=== PATIENT | female | born 1955 | race Caucasian/White ===

== ENCOUNTER 2021-05-11 12:16 | Inpatient (IN) | payer OTHER, SELFPAY ==
[2021-05-11] VITALS (13 sets, daily range): BP systolic 139–206; BP diastolic 74–129; PULSE 76–118; RESP 8–22; TEMP 36.1–37.7; O2SAT 92–99; BMI 41.1
--- NOTE | 2021-05-11 12:27 | US_ITS ---
STUDY: ABDOMINAL ULTRASOUND - RIGHT UPPER QUADRANT REASON FOR VISIT: Female, 65 years old. Pain epigastric pain nausea vomiting for one day TECHNIQUE: Ultrasound evaluation of the right upper quadrant was performed with real-time and static pierre-scale imaging. TECHNICAL QUALITY: Adequate. COMPARISON: None. FINDINGS: Liver: The liver measures 19.7 cm. There is increased echogenicity of the liver. The bile ducts are within normal limits. There is hepatic color flow. The direction of portal flow is hepatopetal. There is no demonstrated mass lesion. Gallbladder: Normal distended gallbladder. The gallbladder wall measures 5.5 mm. There is positive sonographic Petit stone. There is pericholecystic fluid and multiple small gallstones. Common Bile Duct (C.B.D.): The common bile duct measures 6.5 mm. Pancreas: Not visualized due to patient''s condition. Right Kidney: Normal size of the right kidney. The right kidney measures 11.2 x 5.4 x 5.9 cm. Normal renal cortex. The right cortex measures 1.6 cm. There is no demonstrated renal mass or cyst. There is no right hydronephrosis. US/Gallbladder IMPRESSION: Cholecystolithiasis and cholecystitis. Hepatomegaly and steatosis. Electronically Signed: Whitley Frazier MD at 15:03 EST Tel , Service support ,
--- NOTE | 2021-05-11 12:28 | EDS_ITS ---
HPI HPI - GI History of Present Illness Chief Complaint: Abd Pain Detail of Chief Complaint: Right upper quadrant/epigastric pain Informant: patient Abdominal Pain/Flank Pain Onset: Today and Hours Context: Sudden Onset Timing: Continuous and Waxes and wanes Quality: Cramping Location: Epigastric and RUQ Current Severity: Severe Maximum Severity: Severe Worsened by: Nothing Relieved by: Nothing Nausea/Vomiting/Emesis GI Symptom: Positive for Nausea; Negative for Vomiting Diarrhea/Melena/Hematochezia GI Symptom: Negative for Diarrhea, Melena and Hematochezia Associated Symptoms Associated Symptoms: Negative for Dysuria, Frequency and Hematuria Narrative Narrative: Patient is an elderly woman with history of depression who presents with abrupt onset of right upper quadrant/epigastric pain that started at 0200. She had pizza with her last evening. She denies history of liver or biliary disease. There is no family history of biliary disease. She denies cardiac or respiratory symptoms. She denies urologic symptoms. There is no history of renal ureterolithiasis. She has no other complaints. Prior similar symptoms: No Recent Illness/Hospitalization: No PFSH PFSH Medical History no medical history Home Medications NK 05/11/21 [History Last Taken Unknown] Allergy/AdvReac Type Severity Reaction Status Date / Time No Known Allergies Allergy Verified 05/11/21 12:17 Surgical History (Updated 05/11/21 @ 15:[address] Nataliia Dinero MD) History of Social History (Updated 05/11/21 @ 12:[address] Stewart Do MD) household members: spouse Smoking Status: Never smoker substance use type: does not use ROS ROS ED Constitutional Constitutional ED: Denies chills, fever(s), subjective, sweats or weight loss ENT ENT ED: Denies ear pain, rhinorrhea or sore throat Cardiovascular Cardiovascular: Denies chest pain, orthopnea, palpitations, paroxysmal nocturnal dyspnea or racing heartbeat Respiratory/Chest Respiratory/Chest: Denies cough, dyspnea, dyspnea on exertion, orthopnea, paroxysmal nocturnal dyspnea or sputum Gastrointestinal Gastrointestinal: Reports abdominal pain and nausea; Denies constipation, diarrhea or vomiting Genitourinary Genitourinary ED: Denies dysuria, hematuria or urinary frequency Musculoskeletal Musculoskeletal: Denies arthralgias, myalgias or neck pain Integumentary Denies Abrasions or rash Neurologic Neurologic: Denies headache(s) or weakness Psychiatric Psychiatric: Reports depression Endocrine Endocrinology: Denies polydipsia, polyphagia or polyuria EXAM Physical Exam Const Vital Signs: 05/11/21 12:17 05/11/21 14:43 05/11/21 14:50 Temperature 97.0 F L Temperature Source Temporal Pulse Rate 76 87 91 Respiratory Rate 8 L 22 H 14 Blood Pressure 203/90 H 206/97 H 206/97 H Blood Pressure Mean 127 133 133 Blood Pressure Source Monitor Blood Pressure Position Semi-Fowlers Blood Pressure Location Left Arm Pulse Ox 99 98 98 Oxygen Delivery Method Room Air Room Air Room Air Positive well nourished, well developed and obese General Appearance ED: well developed and other Patient in obvious discomfort. She is unable to keep still. She points to the epigastric right upper quadrant. ; Negative for NAD or pallor Nutritional Appearance: obese HEENT Reports dry mucous membranes normocephalic and atraumatic Mouth ED: Yes dry mucous membranes Mouth: dry mucous membranes Eyes PERRL and EOMs intact bilaterally General Eye ED: Negative for pale conjunctiva or scleral icterus Neck no lymphadenopathy, supple and no JVD Resp normal respiratory effort and clear to auscultation bilaterally Cardio regular rate, regular rhythm, S1 normal heart sound, S2 normal heart sound and no murmurs GI no masses; Negative for non-tender or non-distended Auscultation: Negative for normoactive bowel sounds Palpation: soft, tender RUQ and Petit's sign and guarding RUQ Back/Spine no CVA tenderness Cervical Spine: Negative for cervical spine tenderness Thoracic Spine / Upper Back: Negative for thoracic spinal tenderness Lumbar Spine / Lower Back: Negative for lumbar spinal tenderness Extremity full ROM General Extremety ED: Negative for edema or tenderness General Extremity: Negative for edema Neuro CN's II-XII intact bilaterally, moves all extremities and no sensory deficits noted Sensorium / Orientation: alert, oriented to person and oriented to place Motor Exam: strength 5/5 throughout Psych mental status grossly normal and thought process normal Skin no wounds General Skin Exam: Negative for jaundice or pallor Lesions: no lesions Rashes: no rashes MDM MDM MDM Narrative Medical decision making narrative: Dr. Valle raise concern regarding blood pressure. Second dose of Dilaudid was ordered. I was informed at 06/25/[address] Arciniega was still concerned the blood pressure is elevated. I was informed that the second dose of Dilaudid had not been administered. Suspect this is due to pain as well as an treated undiagnosed hypertension. If there is no improvement after second dose of Dilaudid will treat with antihypertensive medication. With abrupt onset of pain positive Petit sign concern patient has acute cholecystitis or a stone stuck in the neck of the bladder. CBC was obtained assess white count. Electrolyte panel was obtained to assess renal function, anion gap and electrolytes. Hepatic and lipase was ordered as well. Ultrasound was ordered. She was medicated with Zofran for her nausea and hydromorphone for her pain. Patient's blood pressure remains elevated. 1.25 mg of enalapril was ordered, IV push. Patient was taken to the operating room Lab Data Attestation: I reviewed the patient's lab results. Labs: Laboratory Results - last 24 hr 05/11/21 05/11/21 12:35 12:35 WBC 16.9 H RBC 4.37 Hgb 14.5 Hct 40.3 MCV 92.2 MCH 33.2 H MCHC 36.0 RDW Std Deviation 39.4 RDW Coeff of Sarmad 11.5 L Plt Count 338 MPV 10.2 Immature Gran % (Auto) 0.900 Neut % (Auto) 89.8 H Lymph % (Auto) 6.4 L Bowie % (Auto) 2.7 Eos % (Auto) 0.0 Baso % (Auto) 0.2 Absolute Neuts (auto) 15.2 H Absolute Lymphs (auto) 1.08 Nucleated RBC % 0 Sodium 138 Potassium 3.6 Chloride 104 Carbon Dioxide 28.0 Anion Gap 6 BUN 10 Creatinine 0.73 Estim Creat Clear Calc 62.39 Est GFR (MDRD) Af Amer 103 Est GFR (MDRD) Non-Af 85 BUN/Creatinine Ratio 13.7 Glucose 149 H Calcium 8.9 Total Bilirubin 0.60 AST 18 ALT 28 Alkaline Phosphatase 90 Total Protein 8.0 Albumin 3.5 Globulin 4.5 H Albumin/Globulin Ratio 0.8 L Lipase 49 L Radiography Diagnostic Testing: Clinical Impression(s) from Imaging Studies Gallbladder Ultrasound 05/11/21 12:27 IMPRESSION: Cholecystolithiasis and cholecystitis. Hepatomegaly and steatosis. Electronically Signed: Whitley Frazier MD at 15:03 EST Tel , Service support , The ultrasound has not been read formally by the radiologist. I reviewed ultrasound and agree with fill technician that there are multiple gallstones evidence of chronic and acute cholecystitis. The common bile duct is dilated 6 to 7 mm. She states she had difficulty doing the exam properly because of the amount of discomfort the patient was experiencing. Patient was reevaluated at 1419. Additional dose of Dilaudid was ordered. Because of the white count and evidence of acute cholecystitis 4.5 g of Zosyn was ordered and the surgeon on- call was paged. EKG Initial EKG: Attestation: I personally reviewed and interpreted this EKG as follows: Interpretation: Sinus Rhythm (Sinus rhythm with a ventricular rate 80. WA intervals 170 ms. QRS durations 92 ms. QT duration is 400 ms. [place] is normal. Computer is reading nonspecific changes which is patient's movement because of the severe pain she is experiencing.) Critical Care Time Critical Care Time: Yes Critical care time (excluding procedures): 30-74 minutes (31 minutes), Including time spent: (History, physical examination, documentation, reassessment, interpretation of laboratory results, discussion with consultants, management of pain and elevated blood pressure), Discussing w/Patient &/or Family/Enterprise Systems Manager, Discussing w/Consultants and Arranging Admission or Transfer Discharge Plan Dx/Rx/DC Orders Clinical Impression: Calculus of gallbladder with acute on chronic cholecystitis, Dilation of common bile duct, Asymptomatic hypertensive urgency Disposition Disposition: Acute Care [facility]
[2021-05-11] MEDS: HYDROmorphone 1 MG/ML Syringe IV ×2 (12:35→14:40)
[2021-05-11] MEDS: Ondansetron 4 MG/2 ML Vial IV (12:35)
[2021-05-11] MEDS: 0.9% Normal Saline 1,000 ML 125 ML IV ×3 (12:44→21:34)
[2021-05-11 12:50] LABS: Absolute Lymphocyte Count 1.08 X10^3/uL (0.83-4.51); Absolute Neutrophil Count 15.2 X10^3/uL (2.0-7.7); Basophil# 0.03 X10^3/uL; Basophil% 0.2 % (0-1); Hematocrit 40.3 % (37-47); Hemoglobin 14.5 g/dL (12.0-15.0); Lymphocyte # 1.08 X10^3/ul (0.83-4.51); Lymphocyte % 6.4 % (19-41); Mean Corpuscular Hgb 33.2 pg (27.0-32.0); Mean Corpuscular Volume 92.2 fL (81-99); Mean Platelet Vol. 10.2 fl (6.2-12.0); Monocyte# 0.46 X10^3/uL; Monocyte% 2.7 % (0-10); NRBC Flagged by Analyzer 0 % (0-5); Neutrophil # 15.17 X10^3/uL (2.7-7.7); Neutrophil % 89.8 % (47-70); Platelet Count 338 K/mm3 (150-450); RBC Distribution Width CV 11.5 % (11.6-14.6); RBC Distribution Width SD 39.4 fl (35.1-43.9); Red Blood Count 4.37 M/mm3 (4.2-5.4); White Blood Count 16.9 K/mm3 (4.4-11.0)
[2021-05-11 13:00] LABS: ALB/GLOB Ratio 0.8 RATIO (0.9-2.4); AST(SGOT) 18 U/L (15-37); Alanine Aminotransfer ALT/SGPT 28 U/L (13-56); Albumin, Serum 3.5 g/dL (3.2-5.0); Alkaline Phosphatase 90 U/L (45-117); Anion Gap 6 (5-15); BUN 10 mg/dL (7-18); BUN/Creat Ratio 13.7 RATIO (10-20); Calcium,Total 8.9 mg/dL (8.5-10.1); Chloride 104 mmol/L (98-107); Creatinine, Serum 0.73 mg/dL (0.55-1.02); EST Glomerular Filtration Rate 85 mL/min (>60); Est Glom Filt Rate - Afr Amer 103 mL/min (>60); Estimated Creatinine Clearance 62.39 ml/min; Globulin 4.5 g/dL (2.2-4.2); Glucose 149 mg/dL (74-106); Lipase 49 U/L (73-393); Potassium 3.6 mmol/L (3.5-5.1); Sodium Level 138 mmol/L (136-145)
--- NOTE | 2021-05-11 14:35 | NURSING ---
OR [facility] CHOLELITHIASIS
--- NOTE | 2021-05-11 14:57 | NURSING ---
DR MALIK IN ROOM
--- NOTE | 2021-05-11 14:58 | HP.PCM.SX_ITS ---
HPI - General HPI Narrative YULIA MILLER, is a 65 F who presents to the ER due to right upper quadrant/epigastric pain which started at 2 AM this morning. Patient last ate or drank at 8 PM had some pizza for dinner. Patient denies ever having previous episodes. She states she only has reflux may be once or twice a month. Patient's white blood count is 16.9 she was given Zosyn IV for acute cholecystitis in the ER. Official read of ultrasound not complete does appear to have some gallbladder wall thickening greater than 3 mm, gallstones and small amount of pericholecystic fluid common bile duct measured by the tech about 6 mm . PFSH Medical History no medical history Home Medications NK 05/11/21 [History Last Taken Unknown] Allergy/AdvReac Type Severity Reaction Status Date / Time No Known Allergies Allergy Verified 05/11/21 12:17 Surgical History (Updated 05/11/21 @ 15:[address] Nataliia Dinero MD) History of Social History (Updated 05/11/21 @ 12:[address] Stewart Do MD) household members: spouse Smoking Status: Never smoker substance use type: does not use Vital Signs Vital Signs Vital Signs: 05/11/21 12:17 05/11/21 14:43 05/11/21 14:50 Temperature 97.0 F L Temperature Source Temporal Pulse Rate 76 87 91 Respiratory Rate 8 L 22 H 14 Blood Pressure 203/90 H 206/97 H 206/97 H Blood Pressure Mean 127 133 133 Blood Pressure Source Monitor Blood Pressure Position Semi-Fowlers Blood Pressure Location Left Arm Pulse Ox 99 98 98 Oxygen Delivery Method Room Air Room Air Room Air Weight Weight: 225 lb Body Mass Index (BMI) 41.1 Physical Exam Const alert, oriented x3 and no apparent distress HEENT normocephalic and head/scalp atraumatic Resp normal respiratory effort Cardio regular rate GI soft to palpation; Negative for non-distended Palpation: tender epigastric and RUQ; Negative for guarding or rebound tenderness present Extremity no clubbing, cyanosis or edema Neuro CN's II-XII intact bilaterally Psych mental status grossly normal Results Lab / Micro Data Result Diagrams: 05/11/21 12:35 05/11/21 12:35 Labs: Laboratory Results - last 24 hr 05/11/21 12:35: WBC 16.9 H, RBC 4.37, Hgb 14.5, Hct 40.3, MCV 92.2, MCH 33.2 H, MCHC 36.0, RDW Std Deviation 39.4, RDW Coeff of Sarmad 11.5 L, Plt Count 338, MPV 10.2, Immature Gran % (Auto) 0.900, Neut % (Auto) 89.8 H, Lymph % (Auto) 6.4 L, [place] % (Auto) 2.7, Eos % (Auto) 0.0, Baso % (Auto) 0.2, Absolute Neuts (auto) 15.2 H, Absolute Lymphs (auto) 1.08, Nucleated RBC % 0 05/11/21 12:35: Sodium 138, Potassium 3.6, Chloride 104, Carbon Dioxide 28.0, Anion Gap 6, BUN 10, Creatinine 0.73, Estim Creat Clear Calc 62.39, Est GFR (MDRD) Af Amer 103, Est GFR (MDRD) Non-Af 85, BUN/Creatinine Ratio 13.7, Glucose 149 H, Calcium 8.9, Total Bilirubin 0.60, AST 18, ALT 28, Alkaline Phosphatase 90, Total Protein 8.0, Albumin 3.5, Globulin 4.5 H, Albumin/Globulin Ratio 0.8 L , Lipase 49 L Assessment & Plan Assessment/Plan (1) Calculus of gallbladder with acute on chronic cholecystitis: PLAN: Reviewed the anatomy with the patient and discussed the procedure: laparoscopic cholecystectomy with possible cholangiograms, possible open. Review risks including but not limited to bleeding, infection, hernia, bile leak, retained gallstones requiring another procedure ERCP- Endoscopic Retrograde Cholangiopancreatography, injury to another organ (bile ducts, common bile duct, small bowel, etc.) may require transfer to a tertiary care facility and conversi on to an open procedure. All questions were answered. Nataliia Dinero M.D. Pager: [phone] [facility] [address] [place] [address], [address] [place] [address] Office: [phone] Procedure Criteria Type of Procedure Procedure Type: Elective Elective Risks - COVID COVID Risk Discussion: The surgeon/proceduralist and patient have discussed in detail the risk of exposure to and/or potential harm posed by the COVID-19 virus with having a surgery/procedure at this time versus the risk of delaying the surgery/procedure. It is not possible to know either the risk of delaying the surgery or procedure or chance of getting an infection with perfect accuracy, but a joint decision was made between the patient and the surgeon/proceduralist to proceed at this time with the scheduled surgery/procedure as indicated on the consent form.
--- NOTE | 2021-05-11 15:10 | GALL_PTH ---
PATIENT: YULIA MILLER LOC: [id number] U#:[id number] AGE/SX: 65/F ROOM: [facility] RE05/11/[address]: Dr. Nataliia Dinero MD : [id number] BED: 1 DIS: 05/13/2021 SPEC #: [id number] RECD: 05/12/21 07:33 STATUS: CELINA ZHANG #: [id number] SARAY: 05/11/21 15:[address]: Nataliia Dinero DEPT: SURGICAL PATHOLOGY RECD BY: Isabel Stuart ENTERED: 05/12/21 09:16 SP TYPE: GLORIA CHAIDEZ DR: Dr. Jasmin Ortiz MD Tissues: Gallbladder, NOS Procedures: Surgery Specimen Level III HEADER OPERATION: Laparoscopic cholecystectomy with IOC PRE-OP DIAGNOSIS: Calculus of gallbladder with acute on chronic cholecystitis TISSUE SUBMITTED: Gallbladder MICROSCOPIC DIAGNOSIS Gallbladder, cholecystectomy: Acute and chronic ulcerated cholecystitis and cholelithiasis. Pericystic lymph node with reactive changes. SJ:fany 05/13/2021 MICROSCOPIC DESCRIPTION Slides are reviewed. GROSS DESCRIPTION Received is one container labeled with the patient's name and designated gallbladder. The specimen consists of a previously opened gallbladder measuring 12 x 6 x 6 cm. The external surface is smooth and glistening. Focally, it is granular, hemorrhagic and contains cautery artifact. The lumen of the gallbladder contains yellow-green mucoid bile and multiple yellow, multifaceted calculi ranging in size from 0.1 to 1 cm in greatest dimension. The mucosa is bile-stained and without any mass lesions. The gallbladder wall averages 0.3 cm in thickness and is free of mass lesions. Sections reveal a pericystic nodule measuring 1.7 cm in greatest dimension. Physics Faculty Member sections of the gallbladder, cystic duct and pericystic nodule are submitted in one cassette. / AM:fany 05/12/21 TC:2 CPT: 32826
--- NOTE | 2021-05-11 15:19 | EKG12_ITS ---
Test Reason : ABD PAIN Blood Pressure : / mmHG Vent. Rate : 080 BPM Atrial Rate : 080 BPM P-R Int : 170 ms QRS Dur : 092 ms QT Int : 400 ms P-R-T Axes : 005 000 -10 degrees QTc Int : 461 ms Normal sinus rhythm Nonspecific T wave abnormality Abnormal ECG Confirmed by NIKO SUMNER, UTE ([id number]), editor farm journal RADHA LUDWIG ([id number]) on 05/12/2021 1:55:54 PM Referred By: TIMMY Confirmed By:UTE POPE MD
--- NOTE | 2021-05-11 15:19 | NURSING ---
NO OLD EKGS
--- NOTE | 2021-05-11 16:00 | RAD_ITS ---
STUDY: INTRAOPERATIVE CHOLANGIOGRAM REASON FOR EXAM: Female, 65 years old. Cholecystectomy RADIATION DOSAGE (If Supplied By Facility): CTDIvol = ( ) mGy, DLP = ( ) mGycm. Individualized dose optimization techniques were used for this CT.? FLUOROSCOPY TIME (if supplied): ( 1 minute ) minutes/seconds TECHNIQUE: Procedure performed by Dr. Dinero COMPARISON: None. FINDINGS: After removal of the gallbladder, the cystic duct remnant was cannulized, and contrast injected into the biliary tree. There is normal distention of the intra and extrahepatic ducts. No filling defect to suspect retained stone or gas. There is no extravasation of contrast, and free flow of contrast is noted into the duodenum. RAD/Cholangiogram/ O R,Initial IMPRESSION: Normal intraoperative cholangiogram Electronically Signed: Sanjiv Osorio MD at 20:05 EST , Service support ,
--- NOTE | 2021-05-11 17:43 | PCM.OPRPT ---
Report of Operation Date of Procedure: 05/11/21 Pre-Operative Diagnosis: Acute cholecystitis Post-Operative Diagnosis: Acute cholecystitis, choledocholithiasis Surgery/Procedure Performed:: Laparoscopic cholecystectomy with cholangiograms Description of Surgical Findings:: Cholangiograms show choledocholithiasis Surgeon: Nataliia Dinero Type of Anesthesia: General/Supplemental Anesthesiologist: Karely Almonte Special Medications: Zosyn 4.5 g IV x1 Specimen's removed: Gallbladder and stones Estimated Blood Loss (mL): 30 cc Fluids Replaced: Per anesthesia Description of Procedure: Indications this is a 65 year-old female who developed abdominal pain/nausea/vomiting and on workup was found to have cholelithiasis, acute cholecystitis with a normal common bile duct. Laparoscopic cholecystectomy was elected. Description procedure: The patient was placed on operating table in supine position. General Anesthesia was induced. A timeout was completed verifying correct patient, procedure, site, position and special equipment prior to beginning procedure. The abdomen was prepped and draped in usual sterile fashion. An incision was made in the natural skin line above the umbilicus. The fascia was elevated and incised. The peritoneum was elevated and incised. Entry into the peritoneum was confirmed visually and no bowel was noted in the vicinity of the incision. [place] trocar was placed. The abdomen was insufflated with carbon dioxide to a pressure of 12-15 mmHg. Patient tolerated insufflation well. The laparoscope was then inserted and abdomen inspected. No injuries from initial trocar placement were noted. Additional trochars were then inserted in the following locations 5 mm trocar in the epigastrium and 2 more 5 mm trochars along the right costal margin. The abdomen was inspected no abnormalities were found. The table is placed in reverse Trendelenburg position with the right side up. The adhesions between the gallbladder and omentum were lysed sharply. The gallbladder was inflamed and tense and aspiration needle was used to help decompress. The dome of the gallbladder was grasped with atraumatic grasper passed through the lateral port and retracted over the dome of the liver. Infundibulum was then grasped with atraumatic grasper through the midclavicular port and retracted to the right lower quadrant. This maneuver exposed Calot's triangle. The peritoneum overlying the gallbladder infundibulum was then incised and cystic duct and artery identified and circumferentially dissected. Jones catheter was used for cholangiograms. The cholangiogram showed good filling of the common bile duct with filling defect in the distal aspect of the common bile duct some contrast did go through to the duodenum, good filling of the right and left bile ducts as well. The cystic duct and artery were then doubly clipped and divided close to the gallbladder. The gallbladder then dissected from its peritoneal attachments by electrocautery. Hemostasis was checked and the gallbladder and contained stones were removed using the endoscopic retrieval bag through the umbilical port which had to be enlarged due to the size of the gallbladder. The gallbladder is passed off table as specimen. The gallbladder fossa was copiously irrigated with saline and hemostasis obtained. There is no evidence of bleeding from the gallbladder fossa or cystic artery leakage of bile from the cystic duct stump. Secondary trochars removed under direct vision. No bleeding was noted the trocar sites. The laparoscope was withdrawn and umbilical trocar removed. The abdomen was allowed to collapse. The fascia of the 12 mm trocar was closed with 2 [id number] 0 Vicryl suture. The skin was closed with sutures of 4-0 Monocryl and Steri-Strips. The orogastric tube was removed and the patient was extubated. The patient tolerated procedure well and was taken to the postanesthesia care unit in stable condition. Complications none
[2021-05-11] MEDS: Bupivacaine Mpf 0.5% 30 ML VIAL (17:44)
--- NOTE | 2021-05-11 19:00 | PCS.PANDOC ---
PANDEMIC DOCUMENTATION INITIATED: Date: 02/03/2021 Time: 190 Emergency documentation initiated 05/11/21 @ 1900
[2021-05-12] VITALS (13 sets, daily range): BP systolic 122–164; BP diastolic 59–97; PULSE 61–94; RESP 16–18; TEMP 36.7–37.3; O2SAT 92–98
[2021-05-12 06:36] LABS: Absolute Lymphocyte Count 0.99 X10^3/uL (0.83-4.51); Absolute Neutrophil Count 13.4 X10^3/uL (2.0-7.7); Basophil# 0.02 X10^3/uL; Basophil% 0.1 % (0-1); Hematocrit 38.6 % (37-47); Hemoglobin 13.3 g/dL (12.0-15.0); Lymphocyte # 0.99 X10^3/ul (0.83-4.51); Lymphocyte % 6.7 % (19-41); Mean Corp Hgb Conc 34.5 g/dL (32-36); Mean Platelet Vol. 10.5 fl (6.2-12.0); Monocyte# 0.26 X10^3/uL; Monocyte% 1.8 % (0-10); NRBC Flagged by Analyzer 0 % (0-5); Neutrophil # 13.35 X10^3/uL (2.7-7.7); Neutrophil % 90.5 % (47-70); Platelet Count 344 K/mm3 (150-450); RBC Distribution Width CV 11.7 % (11.6-14.6); RBC Distribution Width SD 39.4 fl (35.1-43.9); Red Blood Count 4.15 M/mm3 (4.2-5.4); White Blood Count 14.8 K/mm3 (4.4-11.0)
[2021-05-12 06:58] LABS: AST(SGOT) 149 U/L (15-37); Alanine Aminotransfer ALT/SGPT 199 U/L (13-56); Albumin, Serum 2.7 g/dL (3.2-5.0); Alkaline Phosphatase 128 U/L (45-117); Anion Gap 7 (5-15); BUN 10 mg/dL (7-18); BUN/Creat Ratio 14.7 RATIO (10-20); Bilirubin, Direct 0.23 mg/dL (0.00-0.30); Calcium,Total 8.2 mg/dL (8.5-10.1); Chloride 107 mmol/L (98-107); Creatinine, Serum 0.68 mg/dL (0.55-1.02); EST Glomerular Filtration Rate 92 mL/min (>60); Est Glom Filt Rate - Afr Amer 112 mL/min (>60); Estimated Creatinine Clearance 66.97 ml/min; Globulin 4.1 g/dL (2.2-4.2); Glucose 137 mg/dL (74-106); Potassium 3.6 mmol/L (3.5-5.1); Protein, Total 6.8 g/dL (6.4-8.2); Sodium Level 138 mmol/L (136-145)
--- NOTE | 2021-05-12 07:55 | PN.SURG_ITS ---
Subjective Subjective Plan for an ERCP today. Asking the radiologist to review the images as initially its been read as normal but on my read there are filling defects in the distal duct. Objective Data Objective Data Vital Signs: Vital Signs Temp Pulse Resp BP Pulse Ox 98.7 F 86 18 164/69 H 93 05/12/21 04:13 05/12/21 04:13 05/12/21 04:13 05/12/21 04:13 05/12/21 04:13 Oxygen Delivery Method Room Air Weight: 225 lb Body Mass Index (BMI) 41.1 Intake & Output: Intake and Output for Last 24 Hours 05/10/21 05/11/21 05/12/21 23:59 23:59 23:59 Intake Total 1402.08 / 1902.08 550 / 550 Output Total 750 / 750 Balance 1402.08 / 1602.08 -200 / -200 Lab / Micro Data Result Diagrams: 05/12/21 05:15 05/12/21 05:15 Labs: Laboratory Results - last 24 hr 05/11/21 12:35: WBC 16.9 H, RBC 4.37, Hgb 14.5, Hct 40.3, MCV 92.2, MCH 33.2 H, MCHC 36.0, RDW Std Deviation 39.4, RDW Coeff of Sarmad 11.5 L, Plt Count 338, MPV 10.2, Immature Gran % (Auto) 0.900, Neut % (Auto) 89.8 H, Lymph % (Auto) 6.4 L, [place] % (Auto) 2.7, Eos % (Auto) 0.0, Baso % (Auto) 0.2, Absolute Neuts (auto) 15.2 H, Absolute Lymphs (auto) 1.08, Nucleated RBC % 0 05/11/21 12:35: Sodium 138, Potassium 3.6, Chloride 104, Carbon Dioxide 28.0, Anion Gap 6, BUN 10, Creatinine 0.73, Estim Creat Clear Calc 62.39, Est GFR (MDRD) Af Amer 103, Est GFR (MDRD) Non-Af 85, BUN/Creatinine Ratio 13.7, Glucose 149 H, Calcium 8.9, Total Bilirubin 0.60, AST 18, ALT 28, Alkaline Phosphatase 90, Total Protein 8.0, Albumin 3.5, Globulin 4.5 H, Albumin/Globulin Ratio 0.8 L , Lipase 49 L 05/12/21 05:15: WBC 14.8 H, RBC 4.15 L, Hgb 13.3, Hct 38.6, MCV 93.0, MCH 32.0, MCHC 34.5, RDW Std Deviation 39.4, RDW Coeff of Sarmad 11.7, Plt Count 344, MPV 10.5, Immature Gran % (Auto) 0.900, Neut % (Auto) 90.5 H, Lymph % (Auto) 6.7 L, [place] % (Auto) 1.8, Eos % (Auto) 0.0, Baso % (Auto) 0.1, Absolute Neuts (auto) 13.4 H, Absolute Lymphs (auto) 0.99, Nucleated RBC % 0 05/12/21 05:15: Sodium 138, Potassium 3.6, Chloride 107, Carbon Dioxide 24.0, Anion Gap 7, BUN 10, Creatinine 0.68, Estim Creat Clear Calc 66.97, Est GFR (MDRD) Af Amer 112, Est GFR (MDRD) Non-Af 92, BUN/Creatinine Ratio 14.7, Glucose 137 H, Calcium 8.2 L, Total Bilirubin 1.00, Direct Bilirubin 0.23, AST 149 H, ALT 199 H, Alkaline Phosphatase 128 H, Total Protein 6.8, Albumin 2.7 L, Globulin 4.1 Micro: Microbiology 05/11/21 14:45 Nasal Secretion SARS-CoV-2 Antigen (Rapid) - Final Radiography Diagnostic Testing: Radiology Impression Gallbladder Ultrasound 05/11/21 12:27 IMPRESSION: Cholecystolithiasis and cholecystitis. Hepatomegaly and steatosis. Electronically Signed: Whitley Frazier MD at 15:03 EST Tel , Service support , Cholangiogram 05/11/21 16:00 IMPRESSION: Normal intraoperative cholangiogram Electronically Signed: Sanjiv Osorio MD at 20:05 EST , Service support , Physical Exam Resp normal respiratory effort Cardio regular rate GI GI Narrative: Abdomen: Soft, nondistended, tender near incision's dressed clean dry and intact, no peritoneal signs Assessment & Plan Assessment/Plan (1) S/P laparoscopic cholecystectomy: (2) Choledocholithiasis: (3) HTN (hypertension): PLAN: Patient will go for an ERCP today. Continue to monitor any blood pressure patient is currently not on any blood pressure meds at home however came into the hospital she was 200 over 90s, continue as needed hydralazine Nataliia Dinero M.D. Pager: [phone] [facility] [address] [place] [address], [address] [place] [address] Office: [phone]
--- NOTE | 2021-05-12 08:04 | PCM.PN.SRG ---
Subjective Subjective Patient is not reporting any pain this morning. Objective Data Objective Data Vital Signs: Vital Signs Temp Pulse Resp BP Pulse Ox 98.7 F 86 18 164/69 H 93 05/12/21 04:13 05/12/21 04:13 05/12/21 04:13 05/12/21 04:13 05/12/21 04:13 Oxygen Delivery Method Room Air Weight: 225 lb Body Mass Index (BMI) 41.1 Intake & Output: Intake and Output for Last 24 Hours 05/10/21 05/11/21 05/12/21 23:59 23:59 23:59 Intake Total 1402.08 / 1902.08 550 / 550 Output Total 750 / 750 Balance 1402.08 / 1602.08 -200 / -200 Lab / Micro Data Result Diagrams: 05/12/21 05:15 05/12/21 05:15 Labs: Laboratory Results - last 24 hr 05/11/21 12:35: WBC 16.9 H, RBC 4.37, Hgb 14.5, Hct 40.3, MCV 92.2, MCH 33.2 H, MCHC 36.0, RDW Std Deviation 39.4, RDW Coeff of Sarmad 11.5 L, Plt Count 338, MPV 10.2, Immature Gran % (Auto) 0.900, Neut % (Auto) 89.8 H, Lymph % (Auto) 6.4 L, [place] % (Auto) 2.7, Eos % (Auto) 0.0, Baso % (Auto) 0.2, Absolute Neuts (auto) 15.2 H, Absolute Lymphs (auto) 1.08, Nucleated RBC % 0 05/11/21 12:35: Sodium 138, Potassium 3.6, Chloride 104, Carbon Dioxide 28.0, Anion Gap 6, BUN 10, Creatinine 0.73, Estim Creat Clear Calc 62.39, Est GFR (MDRD) Af Amer 103, Est GFR (MDRD) Non-Af 85, BUN/Creatinine Ratio 13.7, Glucose 149 H, Calcium 8.9, Total Bilirubin 0.60, AST 18, ALT 28, Alkaline Phosphatase 90, Total Protein 8.0, Albumin 3.5, Globulin 4.5 H, Albumin/Globulin Ratio 0.8 L, Lipase 49 L 05/12/21 05:15: WBC 14.8 H, RBC 4.15 L, Hgb 13.3, Hct 38.6, MCV 93.0, MCH 32.0, MCHC 34.5, RDW Std Deviation 39.4, RDW Coeff of Sarmad 11.7, Plt Count 344, MPV 10.5, Immature Gran % (Auto) 0.900, Neut % (Auto) 90.5 H, Lymph % (Auto) 6.7 L, [place] % (Auto) 1.8, Eos % (Auto) 0.0, Baso % (Auto) 0.1, Absolute Neuts (auto) 13.4 H, Absolute Lymphs (auto) 0.99, Nucleated RBC % 0 05/12/21 05:15: Sodium 138, Potassium 3.6, Chloride 107, Carbon Dioxide 24.0, Anion Gap 7, BUN 10, Creatinine 0.68, Estim Creat Clear Calc 66.97, Est GFR (MDRD) Af Amer 112, Est GFR (MDRD) Non-Af 92, BUN/Creatinine Ratio 14.7, Glucose 137 H, Calcium 8.2 L, Total Bilirubin 1.00, Direct Bilirubin 0.23, AST 149 H, ALT 199 H, Alkaline Phosphatase 128 H, Total Protein 6.8, Albumin 2.7 L, Globulin 4.1 Micro: Microbiology 05/11/21 14:45 Nasal Secretion SARS-CoV-2 Antigen (Rapid) - Final Radiography Diagnostic Testing: Radiology Impression Gallbladder Ultrasound 05/11/21 12:27 IMPRESSION: Cholecystolithiasis and cholecystitis. Hepatomegaly and steatosis. Electronically Signed: Whitley Frazier MD at 15:03 EST Tel , Service support , Cholangiogram 05/11/21 16:00 IMPRESSION: Normal intraoperative cholangiogram Electronically Signed: Sanjiv Osorio MD at 20:05 EST , Service support , Physical Exam Const oriented x3 and no apparent distress Resp normal respiratory effort GI soft to palpation and non-tender Assessment & Plan Assessment/Plan (1) Choledocholithiasis: PLAN: Patient had laparoscopic cholecystectomy with cholangiogram which showed a filling defect in the common bile duct. I discussed ERCP with the patient in detail today. I discussed the risks of the procedure including but not limited to bleeding, infection, perforation of the bile duct or bowel, pancreatitis. Patient understands the procedure and the risks involved and the possibility of placing a stent. Plan for ERCP this afternoon. Joe Mckoy MD Pager: [facility] [address] [place] [address] Office:
--- NOTE | 2021-05-12 08:25 | PCS.PANDOC ---
PANDEMIC DOCUMENTATION INITIATED: Date: 02/03/2021 Time: 190
[2021-05-12] MEDS: 0.9% Saline Lock 10 ML Syringe IV ×2 (09:20→16:01)
[2021-05-12] MEDS: HYDROmorphone 0.5 MG/0.5 ML SYRINGE IV (09:20)
[2021-05-12] MEDS: 0.9% Normal Saline 1,000 ML 125 ML IV ×2 (09:21→15:59)
--- NOTE | 2021-05-12 12:49 | NURSING ---
1150-off unit via bed for procedure
--- NOTE | 2021-05-12 13:48 | RAD_ITS ---
INDICATION: ERCP EXAMINATION/TECHNIQUE: 1 limited spot intraoperative films are presented for evaluation. COMPARISON: Intraoperative cholangiogram from 05/11/2021. FINDINGS/ RAD/ERCP Biliary Only IMPRESSION: Limited assessment due to single frontal view submitted for evaluation. Findings were correlated with the intraoperative cholangiogram. Catheter is seen within the common bile duct. Contrast opacifies the proximal common bile duct and the central intrahepatic ducts without definite findings to suggest abnormal dilation or filling defects. No other acute findings. Electronically Signed: Castro Reilly MD at 9:05 EST Tel , Service support ,
--- NOTE | 2021-05-12 14:38 | OP.ERCP_ITS ---
Patient Name: Gisel Mera Procedure Date: 05/12/2021 1:09 PM Date of : 1955 Age: 65 Procedure: ERCP Indications: Common bile duct stone(s) Providers: Joe Mckoy MD Medicines: General Anesthesia Patient Profile: This is a 65 year old female. Refer to note in patient chart for documentation of history and physical. Complications: No immediate complications. Procedure: Pre-Anesthesia Assessment: - Prior to the procedure, a History and Physical was performed, and patient medications and allergies were reviewed. The patient's tolerance of previous anesthesia was also reviewed. The risks and benefits of the procedure and the sedation options and risks were discussed with the patient. All questions were answered, and informed consent was obtained. Prior Anticoagulants: The patient has taken no previous anticoagulant or antiplatelet agents. After reviewing the risks and benefits, the patient was deemed in satisfactory condition to undergo the procedure. After obtaining informed consent, the scope was passed under direct vision. Throughout the procedure, the patient's blood pressure, pulse, and oxygen saturations were monitored continuously. The [id number]/n [id number] endoscope was introduced through the mouth, and advanced to the duodenum and used to inject contrast into the bile duct and ventral pancreatic duct. The ERCP was accomplished without difficulty. The patient tolerated the procedure well. Scope In: 1:49:46 PM Scope Out: 2:25:21 PM Total Procedure Duration Time 0 hours 35 minutes 35 seconds Findings: The ventral pancreatic duct was deeply cannulated with the sphincterotome. Wire was left in the pancreas to assist with cannulation of bile duct. Contrast was injected. A 0.035 inch x 260 cm straight Dreamwire was passed into the biliary tree. The sphincterotome was passed over the guidewire and the bile duct was then deeply cannulated. Contrast was injected. Biliary sphincterotomy was made with a monofilament sphincterotome using ERBE electrocautery. There was no post-sphincterotomy bleeding. The biliary tree was swept with a 12 mm balloon starting at the bifurcation. All stones were removed. One 3 Fr by 5 cm temporary stent with a 3/4 external pigtail and no internal flaps was placed into the ventral pancreatic duct. Clear fluid flowed through the stent. The stent was in good position. Impression: - Choledocholithiasis was found. Complete removal was accomplished by biliary sphincterotomy and balloon extraction. - A biliary sphincterotomy was performed. - The biliary tree was swept. - One temporary stent was placed into the ventral pancreatic duct. Procedure Code(s): --- Professional --- 79896, Endoscopic retrograde cholangiopancreatography (ERCP); with placement of endoscopic stent into biliary or pancreatic duct, including pre- and post-dilation and guide wire passage, when performed, including sphincterotomy, when performed, each stent [id number], Endoscopic retrograde cholangiopancreatography (ERCP); with removal of calculi/debris from biliary/pancreatic duct(s) Diagnosis Code(s): --- Professional --- K80.50, Calculus of bile duct without cholangitis or cholecystitis without obstruction CPT copyright 2017 [employer]. All rights reserved. The codes documented in this report are preliminary and upon landscape technician review may be revised to meet current compliance requirements. Joe Mckoy MD 05/12/2021 2:38:02 PM This report has been signed electronically. Number of Addenda: 0 Note Initiated On: 05/12/2021 1:09 PM
--- NOTE | 2021-05-12 14:39 | OP.CCLET_ITS ---
05/12/2021 Jasmin Ortiz [address] [place] [address] Re : ERCP procedure for [facility] Dear Dr. Ortiz This procedure was performed on Wednesday, May 12, 2021. My impressions and recommendations are as follows: Impressions : - Choledocholithiasis was found. Complete removal was accomplished by biliary sphincterotomy and balloon extraction. - A biliary sphincterotomy was performed. - The biliary tree was swept. - One temporary stent was placed into the ventral pancreatic duct. Recommendations : My findings are described in the full procedure note, which is enclosed. If I can be of further assistance, please feel free to contact me at Doctor phone number(s): , Work: . Sincerely, Joe Mckoy MD 05/12/2021 2:38:02 PM This report has been signed electronically.
[2021-05-12] MEDS: hydrALAZINE 20 MG/ML Vial 10 MG IV (16:00)
[2021-05-13] MEDS: 0.9% Normal Saline 1,000 ML 125 ML IV (00:30)
[2021-05-13 02:00] VITALS: BP 145/74; PULSE 71; RESP 16; TEMP 36.9; O2SAT 94
--- NOTE | 2021-05-13 06:57 | PCM.PN.SRG ---
Subjective Subjective Patient is doing well and ready to order a regular breakfast this morning. Objective Data Objective Data Vital Signs: Vital Signs Temp Pulse Resp BP Pulse Ox 98.5 F 71 16 145/74 H 94 05/13/21 02:00 05/13/21 02:00 05/13/21 02:00 05/13/21 02:00 05/13/21 02:00 Oxygen Delivery Method Room Air Weight: 225 lb Body Mass Index (BMI) 41.1 Intake & Output: Intake and Output for Last 24 Hours 05/11/21 05/12/21 05/13/21 23:59 23:59 23:59 Intake Total 1402.08 / 1902.08 4139.17 / 4139.17 120 / 120 Output Total 1800 / 1800 Balance 1402.08 / 1602.08 2339.17 / 2339.17 120 / 120 Lab / Micro Data Result Diagrams: 05/12/21 05:15 05/12/21 05:15 Labs: Laboratory Results - last 24 hr 05/12/21 05:15: Sodium 138, Potassium 3.6, Chloride 107, Carbon Dioxide 24.0, Anion Gap 7, BUN 10, Creatinine 0.68, Estim Creat Clear Calc 66.97, Est GFR (MDRD) Af Amer 112, Est GFR (MDRD) Non-Af 92, BUN/Creatinine Ratio 14.7, Glucose 137 H, Calcium 8.2 L, Total Bilirubin 1.00, Direct Bilirubin 0.23, AST 149 H, ALT 199 H, Alkaline Phosphatase 128 H, Total Protein 6.8, Albumin 2.7 L, Globulin 4.1 Micro: Microbiology 05/11/21 14:45 Nasal Secretion SARS-CoV-2 Antigen (Rapid) - Final Radiography Diagnostic Testing: Radiology Impression Cholangiogram 05/11/21 16:00 IMPRESSION: Normal intraoperative cholangiogram Electronically Signed: Sanjiv Osorio MD at 20:05 EST , Service support , ADDENDUM: 05/12/21 1235 Physical Exam Resp normal respiratory effort Cardio regular rate GI GI Narrative: Abdomen: Soft, nondistended, tender near incision's dressed clean dry and intact, no peritoneal signs Assessment & Plan Assessment/Plan (1) S/P laparoscopic cholecystectomy: (2) HTN (hypertension): (3) S/P ERCP: PLAN: Patient is doing well if tolerates a regular diet okay to DC home today. Patient will follow-up in about 1 week and have a KUB at that time to make sure the pancreatic stent falls out on its own otherwise she will have an EGD with Dr. Mckoy for removal. Hypertension patient did require only 1 as needed dose of hydralazine yesterday afternoon. Follow-up with PCP Nataliia Dinero M.D. Pager: [phone] [facility] [address] [place] [address], [address] [place] [address] Office: [phone]
--- NOTE | 2021-05-13 07:14 | EX.PCM.DISCH ---
Discharge Instructions Diet Discharge Diet: Light diet - advance as tolerated Activity Discharge Activity: May Not Drive (while taking narcotic pain medications.) Return to work on:: 05/26/21 (will after f/u appt in 1 week to reassess) May shower in (days): 1 Lifting Restrictions: no lifting >20 lbs x 2 wks, no strenuous exercise for 4 wks Dressing / Incision Call your doctor if your incision/area has: Continuous Slow Oozing, Sudden Increased Bleeding, Increased Pain/ Swelling, Increased Redness, Foul Smelling Discharge and Swelling at the incision site Call your doctor if you observe: Fever of 101 or Higher Remove Dressing in: 2 days Cleanse incision/area with: Soap & Water Additional Dressing/Incision Instructions:: Steri-Strips will fall off in 7 to 10 days, if they do not fall off okay to remove after 10 days. Follow Up Care Please Follow Up With: Nataliia Dinero MD When: Call the office for a follow-up appointment next week--get abdominal Xray on 05/19 or after; after 5 PM and on the weekends call [phone] with any concerns. Test Results: Test results from this visit will be discussed in further detail at your follow-up appointment, if applicable. Discharge Plan Admission Admit Date/Time: 05/11/21 15:24 Attending Provider: Nataliia Dinero Primary Care Provider: Jasmin Ortiz Discharge Orders/Prescriptions Prescriptions: New oxycodone-acetaminophen [Percocet] 5-325 mg tablet 1 - 2 tab PO Q6H PRN (Reason: pain) 3 Days Qty: 14 RF: 0 Other Ambulatory Orders: Abdomen Single View (Routine) Timeframe: [id number] Facility: [facility] - Location: [facility] Ordered By: Dr. Nataliia Dinero Referrals / Follow Up: Jasmin Ortiz MD [Primary Care Provider] - (evaluation for hypertension) Disposition Disposition (needs filled in before D/C Order can be placed): Home, Self Care
[2021-05-13 07:51] VITALS: BP 140/79; PULSE 56; RESP 14; TEMP 36.7; O2SAT 98
--- NOTE | 2021-05-13 09:45 | CASEMGMT ---
Addendum entered by Shira Rich 05/13/21 09:56: Notified pt that a script was already sent to [facility] pharmacy yesterday. Original Note: MARTHA NARVAEZ Assessment: Face to Face with pt for initial transition planning/care coordination assessment. MARTHA NARVAEZ introduced self and role at [facility], pt voices understanding and consents to assessment. Pt is A/O x4 and answers all questions appropriately at this time. Pt lying in bed with eyes closed in no distress. Care providers, pharmacy, and demographics verified/updated. Admitting Dx: acute cholecystitis PCP:[facility] Specialists: Pt denies having any specialists. Preferred Pharmacy: [facility] Insurance: [employer] [place] [employer] Prescription Benefit: yes LW/HPOA: Pt denies having a LW/DPOA and denies need for info regarding AD. LNOK: Wilbur Mera, Living Arrangements: Pt lives with in a two story house with 4 steps to enter. Pt reports being I in ADL's and denies concerns at home. Transportation: Pt drives self and denies concerns with transportation. DME/HHC/SNF: Pt denies having any DME, hx of HHC or SNF stays. Pt states no concerns with going home at time of dc. Pt states no further concerns/needs. CM to follow. Advised pt to ask CM if any further question/concerns/needs arise, voices understanding. Pt Goal: Home Plan: Home
--- NOTE | 2021-05-13 12:28 | DS.PCM_ITS ---
Providers Date of Admission: 05/11/21 Primary Care Physician: Dr. Jasmin Ortiz MD Reason For Visit: ACUTE CHOLECYSTITIS Diagnosis Discharge Diagnosis (1) S/P laparoscopic cholecystectomy: Status: Acute Code(s): Z90.49 - Acquired absence of other specified parts of digestive tract (2) Choledocholithiasis: Status: Resolved Code(s): K80.50 - Calculus of bile duct without cholangitis or cholecystitis without obstruction (3) HTN (hypertension): Status: Chronic Code(s): I10 - Essential (primary) hypertension Medications at Discharge Home Medications oxycodone-acetaminophen [Percocet] 1 - 2 tab PO Q6H PRN 3 Days #14 tab 05/12/21 Hospital Course Operations cholecystecomy and - (Status post ERCP) Summary of Care Provided Minutes Spent on Discharge: 15 Hospital Course: Patient initially presented to the ER right upper quadrant pain ultrasound was obtained which showed acute cholecystitis. Patient was taken for laparoscopic cholecystectomy. Cholangiogram Intra-Op did show filling defect in common bile duct thus the following day patient was taken for an ERCP. Patient's pain was much improved following the cholecystectomy. ERCP was done and a pancreatic stent was also placed at that time. Patient was able to tolerate clears and advance diet to a regular diet. Patient was able to tolerat e they will be DC'd home the day following the ERCP. Weight / BMI Weight Weight: 225 lb Body Mass Index (BMI) 41.1 ABG / Lab / Microbiology Data Result Diagrams: 05/12/21 05:15 05/12/21 05:15 Microbiology: Microbiology 05/11/21 14:45 Nasal Secretion SARS-CoV-2 Antigen (Rapid) - Final Radiography Diagnostic Testing: Radiology Impression Cholangiogram 05/11/21 16:00 IMPRESSION: Normal intraoperative cholangiogram Electronically Signed: Sanjiv Osorio MD at 20:05 EST , Service support , ADDENDUM: 05/12/21 1235 D/C Instructions Discharge Diet: Light diet - advance as tolerated Return to work on: 05/26/21 (will after f/u appt in 1 week to reassess) May shower in (days): 1 Call your doctor if your incision/area has: Continuous Slow Oozing, Sudden I ncreased Bleeding, Increased Pain/ Swelling, Increased Redness, Foul Smelling Discharge and Swelling at the incision site Call your doctor if you observe: Fever of 101 or Higher Cleanse incision/area with: Soap & Water Additional Dressing/Incision Instructions: Steri-Strips will fall off in 7 to 10 days, if they do not fall off okay to remove after 10 days. Please Follow Up With: Nataliia Dinero MD When: Call the office for a follow-up appointment next week--get abdominal Xray on 05/19 or after; after 5 PM and on the weekends call [phone] with any concerns. Meaningful Use Info Meaningful Use Diagnoses (Choose all that apply): None applicable Discharge Plan Admission Admit Date/Time: 05/11/21 15:24 Attending Provider: Nataliia Dinero Primary Care Provider: Jasmin Ortiz Discharge Orders/Prescriptions Prescriptions: New oxycodone-acetaminophen [Percocet] 5-325 mg tablet 1 - 2 tab PO Q6H PRN (Reason: pain) 3 Days Qty: 14 RF: 0 Other Ambulatory Orders: Abdomen Single View (Routine) Timeframe: [id number] Facility: [facility] - Location: [facility] Ordered By: Dr. Nataliia Dinero Referrals / Follow Up: Jasmin Ortiz MD [Primary Care Provider] - (evaluation for hypertension) Disposition Disposition (needs filled in before D/C Order can be placed): Home, Self Care
[2021-05-13 14:32] VITALS: BP 131/70; PULSE 67; RESP 14; TEMP 36.7; O2SAT 94
--- NOTE | 2021-05-13 15:38 | PHA.DC.MR ---
Pharmacy Service has performed discharge medication reconciliation for this patient. The patient's discharge medication list was reviewed for discrepancies and discrepancies were resolved. Medication education papers printed but was unable to director of counseling before discharge. Home Medications oxycodone-acetaminophen [Percocet] 1 - 2 tab PO Q6H PRN 3 Days #14 tab 05/12/21
== END 2021-05-13 15:31 | disposition home or self-care (01) | DRG 418 ==
LOC: ED 14:48 → SDC 14:53 → AC 14:56 → ACINP 16:07 → SDC 16:07 → ACINP 16:10 → MS3 05-12 06:36
PROVIDERS: Surgery; Admitting Provider Surgery; Emergency Provider Emergency Medicine; PCP Internal Medicine; Visit Provider Surgery
PROC: 0FT44ZZ Resection of Gallbladder, Percutaneous Endoscopic Approach (ICD-10-PCS; CPT 47610; principal; 2021-05-11 15:10)
PROC: 0F798DZ Dilation of Common Bile Duct with Intraluminal Device, Via Natural or Artificial Opening Endoscopic (ICD-10-PCS; CPT 43260; principal; 2021-05-12 12:45)
DX: K80.66 Calculus of gallbladder and bile duct with acute and chronic cholecystitis without obstruction (principal); Z68.41 Body mass index [BMI] 40.0-44.9, adult; I10 Essential (primary) hypertension; K66.0 Peritoneal adhesions (postprocedural) (postinfection); R93.2 Abnormal findings on diagnostic imaging of liver and biliary tract; E66.01 Morbid (severe) obesity due to excess calories
CPT/HCPCS: 36415; 74300; 74328; 76000; 76705; 80048; 80053; 80076; 83690; 85025; 87426; 88304; 93005; 99251; 99284; J7030; A4216; C1769; G0463; J1610; J2405

== ENCOUNTER → 2021-05-19 11:08 | Outpatient (CLI) | payer OTHER, SELFPAY ==
--- NOTE | 2021-05-19 11:12 | RAD_ITS ---
HISTORY: s/p ERCP T pancreatic stent placement. TECHNIQUE: XR Abdomen 1 View. # of images incl. paperwork: 3. COMPARISON: None. FINDINGS: BOWEL GAS PATTERN: No dilated bowel loops. Moderate stool in the colon. FREE AIR: Not assessed on supine view. CALCIFICATIONS: No pathologic calcifications observed. OSSEOUS STRUCTURES: Unremarkable. SOFT TISSUES: Lung bases clear. Vertically oriented stent with proximal and at L1 and coil tip at the L2-3 level just to the right of the midline. RAD/Abdomen Single View IMPRESSION: Vertically oriented stent in the right upper quadrant at the L1-L2-3 level. at 1149 Reported and signed by: Nancy Li MD Electronically Signed: Nancy Li MD at 11:47 EST Tel , Service support ,
== END ==
PROVIDERS: PCP Internal Medicine; Referring Provider Surgery; Visit Provider Surgery
DX: Z98.890 Other specified postprocedural states (principal)
CPT/HCPCS: 74018

== ENCOUNTER 2021-05-30 08:37 | Day surgery (SDC) | payer OTHER, SELFPAY ==
[2021-05-30 09:10] VITALS: BP 160/80; PULSE 62; RESP 16; TEMP 36.6; O2SAT 100; BMI 43.0
[2021-05-30] MEDS: Lactated Ringers 1,000 ML 15 ML IV (09:13)
--- NOTE | 2021-05-30 09:41 | H&P.OPEN ---
HPI - General HPI Narrative YULIA MILLER, is a 65 F who presents for pancreatic stent removal. Patient had ERCP recently and pancreatic stent was placed. Recent KUB shows that it is still in place. [facility] Medical History (Updated 05/27/21 @ 13:26 by Susan Culver) Alcohol use Anxiety Arthritis Bladder disease Depression History of stress test Leg cramps Migraine headache Non-smoker Shortness of breath on exertion Wears glasses Home Medications NK 05/20/21 [History Last Taken Unknown] Allergy/AdvReac Type Severity Reaction Status Date / Time No Known Allergies Allergy Verified 05/30/21 09:10 Surgical History (Updated 05/20/21 @ 09:54 by Shirin Rios) History of History of ERCP (~04/2021) S/P laparoscopic cholecystectomy (~04/2021) Social History (Updated 05/11/21 @ 12:[address] Stewart Do MD) household members: spouse Smoking Status: Never smoker substance use type: does not use Past Medical/Surgical History Planned Operation Planned Operative Procedure/s: EGD/PANCREATIC STENT REMOVAL/NOT ERCP Previous Hospitalizations/Surgeries HX Hospitalizations: Yes (04/2021) HX of Surgeries: x2 c-sections Any Problems With Anesthesia: No You/Your Family Experience Fever (Hyperthermia) With Anes: No Cholinesterase deficiency: No Cardiovascular Hx Chest Pain within Last 2 months: No Hx of Irregular Heartbeat and/or Afib: No Hx Heart Attack: No Hx Congestive Heart Failure: No Hx Rheumatic Fever: No Hx Hypertension: No Hx Internal Defibrillator: No Hx Pacemaker: No Hx Cardiac Catheterization: No Hx Cardiac Surgery/Stents/Etc.: No Hx Stress Test: Yes Hx Pain in Legs when Walking/Leg Cramps: No Respiratory Chronic Cough: Yes HX of Shortness of Breath: No Hoarseness: No Hx Chronic Obstructive Pulmonary Disease (COPD): No Hx Asthma: No Hx Emphysema: No Hx Sleep Apnea: No Hx Respiratory Tract Infection/Cold (presently): No Do You Snore Loudly (louder than talking or can be heard): No Do You Often Feel Tired/ Fatigued/ Sleepy Dring Daytime?: Yes Has Anyone Observed You Stop Breathing During Sleep?: No Result (for STOP score): Negative Hx Smoking: No Smoking Status: Never smoker Gastrointestinal Hx Gastroesophageal Reflux: No Controlled With Meds: No Hx Gastrointestinal Disorders: No Hx Gastrointestinal Bleed: No Hx Ulcer: No Difficulty Chewing/Swallowing: No Hx Unplanned Weight Loss of 20#: No HX Unplanned Weight Gain of 20#: No Neurological Hx Seizures: No HX Syncope/Blackout Spells/Unconsciousness: No Hx Transient Ischemic Attacks (TIA): No Hx Multiple Sclerosis: No Hx Parkinson's Disease: No Hx Head/Neck Injury: No Hx Headaches: No Hx Back Injury/Pain: No Does patient have nerve stimulator: No Blood Disorder Hx Deep Vein Thrombosis: No Hx High Cholesterol: No Hx Anemia: No Hx Blood Disorders: No Reproduction : No Genitourinary Hx Renal Disease: No Hx Dialysis: No Musculoskeletal Hx Arthritis: No Hx Rheumatoid Arthritis: No Hx Gout: No Endocrine Hx Diabetes: No Insulin: No Thyroid Disease: No Hx Steroid Therapy: No Psycho/Social Hx Alcohol Use: Yes Hx Anxiety: No Hx Depression: Yes Mental Illness: No Hx Dementia: No Miscellaneous Hx Cancer: No Recent Exposure to Contagious Disease: No Hx of C-Diff: No Allergies No Known Allergies Allergy (Verified 05/30/21 09:10) Maternal: No pertinent history Discharge Is Pt Admitted From a Prison, or a Correction: No After D/C, Where Do you Plan to Go: Return Home From the PAT History Number of Risk Factors: 2 Vital Signs Vital Signs Vital Signs: 05/30/21 09:10 Temperature 98 F Temperature Source Temporal Pulse Rate 62 Respiratory Rate 16 Respiratory Pattern Normal Blood Pressure 160/80 H Blood Pressure Mean 106 Blood Pressure Source Monitor Blood Pressure Position Semi-Fowlers Blood Pressure Location Right Arm Pulse Ox 100 Oxygen Delivery Method Room Air Weight Weight: 235 lb 0.204 oz Body Mass Index (BMI) 43.0 Physical Exam Const alert and oriented x3 Resp normal respiratory effort and normal air movement Cardio regular rate and regular rhythm GI soft to palpation, non-tender and non-distended Assessment & Plan Assessment/Plan (1) S/P ERCP: PLAN: Patient is here for EGD with pancreatic stent removal. I explained endoscopy in detail to the patient. I explained the risks including but not limited to stroke or heart attack with anesthesia, perforation of the GI tract, bleeding, infection. I explained that any of these could necessitate further emergency surgery. The patient understands and all questions were answered sufficiently. The patient wishes to proceed with procedure. Joe Mckoy MD Pager: [facility] [address] [place] [address], [address] [place] [address] Office: Surgery Risks - Colonoscopy Risks Include but are not Limited To: Risks include but are not limited to: Bleeding, perforation requiring further surgery, inability to complete colonoscopy requiring barium enema.
--- NOTE | 2021-05-30 09:59 | OP.EGD_ITS ---
Patient Name: Gisel Mera Procedure Date: 05/30/2021 9:45 AM Date of : 1955 Age: 65 Procedure: Upper GI endoscopy Indications: Pancreatic stent removal Providers: Joe Mckoy MD Medicines: Monitored Anesthesia Care Patient Profile: This is a 65 year old female. Refer to note in patient chart for documentation of history and physical. Complications: No immediate complications. Estimated blood loss: Minimal. Procedure: Pre-Anesthesia Assessment: - Prior to the procedure, a History and Physical was performed, and patient medications and allergies were reviewed. The patient's tolerance of previous anesthesia was also reviewed. The risks and benefits of the procedure and the sedation options and risks were discussed with the patient. All questions were answered, and informed consent was obtained. Prior Anticoagulants: The patient has taken no previous anticoagulant or antiplatelet agents. After reviewing the risks and benefits, the patient was deemed in satisfactory condition to undergo the procedure. After obtaining informed consent, the endoscope was passed under direct vision. Throughout the procedure, the patient's blood pressure, pulse, and oxygen saturations were monitored continuously. The gastroscope was introduced through the mouth, and advanced to the second part of duodenum. The upper GI endoscopy was accomplished without difficulty. The patient tolerated the procedure well. Scope In: 9:53:07 AM Scope Out: 9:55:31 AM Total Procedure Duration Time 0 hours 2 minutes 24 seconds Findings: The esophagus was normal. The stomach was normal. The examined duodenum was normal. Estimated blood loss: none. Pancreatic stent removed with snare Impression: - Normal esophagus. - Normal stomach. - Normal examined duodenum. - No specimens collected. Recommendation: - Discharge patient to home. - Resume previous diet. - Continue present medications. Procedure Code(s): --- Professional --- 24893, Esophagogastroduodenoscopy, flexible, transoral; diagnostic, including collection of specimen(s) by brushing or washing, when performed (separate procedure) Diagnosis Code(s): --- Professional --- Z46.59, Encounter for fitting and adjustment of other gastrointestinal appliance and device CPT copyright 2017 [employer]. All rights reserved. The codes documented in this report are preliminary and upon director zone review may be revised to meet current compliance requirements. Joe Mckoy MD 05/30/2021 9:59:29 AM This report has been signed electronically. Number of Addenda: 0 Note Initiated On: 05/30/2021 9:45 AM
[2021-05-30 10:00] VITALS: BP 122/67; BP 160/80; PULSE 64; RESP 16; TEMP 36; O2SAT 96
--- NOTE | 2021-05-30 10:00 | OP.CCLET_ITS ---
05/30/2021 Jasmin Ortiz [address] [place] [address] Re : Upper GI endoscopy procedure for [facility] Dear Dr. Ortiz This procedure was performed on Sunday, May 30, 2021. My impressions and recommendations are as follows: Impressions : - Normal esophagus. - Normal stomach. - Normal examined duodenum. - No specimens collected. Recommendations : - Discharge patient to home. - Resume previous diet. - Continue present medications. My findings are described in the full procedure note, which is enclosed. If I can be of further assistance, please feel free to contact me at Doctor phone number(s): , Work: . Sincerely, Joe Mckoy MD 05/30/2021 9:59:29 AM This report has been signed electronically.
[2021-05-30 10:05] VITALS: BP 126/70; BP 160/80; PULSE 75; RESP 16; O2SAT 94
[2021-05-30 10:10] VITALS: BP 131/71; BP 160/80; PULSE 62; RESP 16; O2SAT 94
[2021-05-30 10:17] VITALS: BP 125/71; BP 160/80; PULSE 61; RESP 18; TEMP 36.3; O2SAT 96
[2021-05-30 10:40] VITALS: BP 160/80
== END 2021-05-30 10:41 | disposition home or self-care (01) ==
LOC: EN 08:44 → AC 08:44
PROVIDERS: PCP Internal Medicine; Referring Provider Internal Medicine; Visit Provider Surgery
PROC: 0DJ08ZZ Inspection of Upper Intestinal Tract, Via Natural or Artificial Opening Endoscopic (ICD-10-PCS; CPT 43235; principal; 2021-05-30 09:40)
DX: Z46.59 Encounter for fitting and adjustment of other gastrointestinal appliance and device (principal); F32.A Depression, unspecified; F41.9 Anxiety disorder, unspecified
CPT/HCPCS: 43251; J7120; J2405